=== PATIENT | male | born 1990 | race African-American/Black ===

== ENCOUNTER 2017-11-24 12:42 | Emergency (ER) | payer SELFPAY ==
[~2017-11-24] VITALS: Ht 180.3 cm; Wt 75.0 kg
[~2017-11-24 12:42] MED LIST: ALBU0.63 NEB
[2017-11-24] MEDS ORDERED: SODIUM CHLORIDE 0.9% 1,000ML IVBOLUS ONE (13:30)
[2017-11-24] MEDS ORDERED: MAALOX/HYOSCYAMINE/LIDOCAINE 45 ML BTL PO ONE (13:30)
[2017-11-24] MEDS ORDERED: FAMOTIDINE 20 MG/2 ML IVP ONE (13:30)
[2017-11-24] MEDS ORDERED: SODIUM CHLORIDE FLUSH 10ML SYR IVF ONE (13:30)
[2017-11-24] MEDS ORDERED: PROMETHAZINE 25 MG/ML, 1ML IM ONE (13:30)
[2017-11-24 13:32] LABS: BASOPHILS # (AUTO) 0.03 x10^3/uL (0-0.1); BASOPHILS % (AUTO) 0 % (0-1); EOSINOPHILS # (AUTO) 0.04 x10^3/uL (0-0.4); EOSINOPHILS % (AUTO) 1 % (1-7); LYMPHOCYTES # (AUTO) 1.52 x10^3/uL (1-3.4); LYMPHOCYTES % (AUTO) 22 % (22-44); MD NO; MEAN CORPUSCULAR HEMOGLOBIN 28.8 pg (27.5-34.5); MEAN CORPUSCULAR HGB CONC 33.9 g/dL (33.2-36.2); MEAN CORPUSCULAR VOLUME 84.8 fL (81-97); MEAN PLATELET VOLUME 9.5 fL (7.4-10.4); MONOCYTES # (AUTO) 0.37 x10^3/uL (0.2-0.8); MONOCYTES % (AUTO) 5 % (2-9); NEUTROPHILS # (AUTO) 5.01 x10^3/uL (1.8-6.8); NEUTROPHILS % (AUTO) 72 % (42-75); PLATELET COUNT 180 x10^3/uL (130-400); RED BLOOD COUNT 5.32 x10^6/uL (4.38-5.82); RED CELL DISTRIBUTION WIDTH 13.4 % (9.4-14.8)
[2017-11-24 13:44] LABS: ALBUMIN 4.6 g/dL (3.4-5.0); ANION GAP 11 mmol/L (5-15); CALCIUM 9.6 mg/dL (8.5-10.1); CHLORIDE 108 mmol/L (98-107)
[2017-11-24 13:48] LABS: ALANINE AMINOTRANSFERASE 36 U/L (12-78); ALKALINE PHOSPHATASE 54 U/L (45-117); BILIRUBIN,TOTAL 0.8 mg/dL (0.2-1.0); CREATININE 1.23 mg/dL (0.7-1.3); TOTAL PROTEIN 7.5 g/dL (6.4-8.2)
[2017-11-24] MEDS ORDERED: MAALOX/HYOSCYAMINE/LIDOCAINE 45 ML BTL ONE (13:54)
[2017-11-24] MEDS ORDERED: FAMOTIDINE 20 MG/2 ML ONE (13:54)
[2017-11-24] MEDS ORDERED: ONDANSETRON ODT 4 MG ONE (14:26)
[2017-11-24] MEDS ORDERED: ONDANSETRON ODT 4 MG PO ONE (14:30)
[2017-11-24] MEDS ORDERED: METOCLOPRAMIDE 5 MG/ML, 2ML ONE (15:04)
[2017-11-24 15:07] VITALS: BP 138/74
[2017-11-24] MEDS ORDERED: MORPHINE SULFATE 4 MG/ML, 1ML IVPush ONE (15:30)
[2017-11-24] MEDS ORDERED: METOCLOPRAMIDE 5 MG/ML, 2ML IVPush ONE (15:30)
[2017-11-24] MEDS ORDERED: MORPHINE SULFATE 4 MG/ML, 1ML ONE (15:31)
== END 2017-11-24 16:26 | disposition home or self-care (01) ==
LOC: ED 13:40
DX: K29.20 Alcoholic gastritis without bleeding (principal)
CPT/HCPCS: 36415; 80053; 83690; 85025; 96372; 96374; 96375; 99284; J2550; J2765; J7030; Q0162; S0028

== ENCOUNTER 2018-06-13 05:06 | Emergency (ER) | payer OTHER ==
[~2018-06-13] VITALS: Ht 180.3 cm; Wt 70.3 kg
[2018-06-13 05:07] VITALS: BP 105/55
[2018-06-13 05:47] LABS: MEAN CORPUSCULAR HEMOGLOBIN 29.7 pg (27.5-34.5); MEAN CORPUSCULAR HGB CONC 33.9 g/dL (33.2-36.2); MEAN CORPUSCULAR VOLUME 87.5 fL (81-97); MEAN PLATELET VOLUME 9.6 fL (7.4-10.4); PLATELET COUNT 167 x10^3/uL (130-400); RED BLOOD COUNT 4.76 x10^6/uL (4.38-5.82); RED CELL DISTRIBUTION WIDTH 12.8 % (9.4-14.8)
[2018-06-13 05:57] LABS: CALCIUM 8.8 mg/dL (8.5-10.1); CHLORIDE 108 mmol/L (98-107)
[2018-06-13 06:02] LABS: ALANINE AMINOTRANSFERASE 27 U/L (12-78); ALBUMIN 4.1 g/dL (3.4-5.0); ALKALINE PHOSPHATASE 56 U/L (45-117); ANION GAP 5 mmol/L (5-15); BILIRUBIN,TOTAL 0.4 mg/dL (0.2-1.0); CREATININE 1.12 mg/dL (0.7-1.3); TOTAL PROTEIN 6.8 g/dL (6.4-8.2)
[2018-06-13 06:29] LABS: BASOPHILS # (AUTO) 0.03 x10^3/uL (0-0.1); BASOPHILS % (AUTO) 1 % (0-1); EOSINOPHILS # (AUTO) 0.14 x10^3/uL (0-0.4); EOSINOPHILS % (AUTO) 4 % (1-7); LYMPHOCYTES # (AUTO) 2.38 x10^3/uL (1-3.4); LYMPHOCYTES % (AUTO) 61 % (22-44); MD SCAN; MONOCYTES # (AUTO) 0.26 x10^3/uL (0.2-0.8); MONOCYTES % (AUTO) 7 % (2-9); NEUTROPHILS # (AUTO) 1.08 x10^3/uL (1.8-6.8); NEUTROPHILS % (AUTO) 28 % (42-75)
== END 2018-06-13 08:55 | disposition home or self-care (01) ==
LOC: ED 08:30
DX: K25.3 Acute gastric ulcer without hemorrhage or perforation (principal); K29.00 Acute gastritis without bleeding
CPT/HCPCS: 36415; 74220; 80053; 83690; 85025; 86677; 99284

== ENCOUNTER 2020-04-21 14:36 | Emergency (ER) | payer SELFPAY ==
[~2020-04-21] VITALS: Ht 180.3 cm; Wt 71.8 kg
[2020-04-21 14:38] VITALS: BP 142/61
--- NOTE | 2020-04-21 14:53 | NUR ---
PT IN BR WHILE PA IN ROOM.
[2020-04-21] MEDS ORDERED: AZITHROMYCIN 500 MG TABLET PO ONE (15:00)
[2020-04-21] MEDS ORDERED: CEFTRIAXONE 250 MG IM ONE (15:00)
[2020-04-21] MEDS ORDERED: AZITHROMYCIN 250 MG TABLET ONE (15:03)
[2020-04-21] MEDS ORDERED: CEFTRIAXONE 250 MG ONE (15:04)
[2020-04-21] MEDS ORDERED: LIDOCAINE-MPF 1%, 5ML ONE (15:04)
[2020-04-21] MEDS ORDERED: CEFTRIAXONE 1,000 MG ONE (15:09)
--- NOTE | 2020-04-21 15:55 | NUR ---
Patient given discharge instructions and they have confirmed that they understand the instructions. Patient ambulatory with steady gait.
== END 2020-04-21 16:05 | disposition home or self-care (01) ==
LOC: ED 15:50
DX: N34.2 Other urethritis (principal); F17.200 Nicotine dependence, unspecified, uncomplicated
CPT/HCPCS: 87491; 87591; 96372; 99283; J0696

== ENCOUNTER 2020-05-14 15:35 | Emergency (ER) | payer SELFPAY ==
[~2020-05-14] VITALS: Ht 180.3 cm; Wt 71.8 kg
[2020-05-14 16:01] VITALS: BP 120/64
[2020-05-14] MEDS ORDERED: AZITHROMYCIN 500 MG TABLET PO ONE (16:30)
[2020-05-14] MEDS ORDERED: CEFTRIAXONE 250 MG IM ONE (16:30)
--- NOTE | 2020-05-14 16:46 | NUR ---
CREDIT OFFICER: PT TO ROOM FROM [facility]
[2020-05-14] MEDS ORDERED: AZITHROMYCIN 500 MG TABLET ONE (16:50)
[2020-05-14] MEDS ORDERED: CEFTRIAXONE 250 MG ONE (16:51)
[2020-05-14] MEDS ORDERED: LIDOCAINE-MPF 1%, 2ML ONE (16:51)
[2020-05-14 17:00] LABS: MICROSCOPIC INDICATED
== END 2020-05-14 17:21 | disposition home or self-care (01) ==
LOC: ED 17:20
DX: R30.0 Dysuria (principal); R36.9 Urethral discharge, unspecified; N50.819 Testicular pain, unspecified
CPT/HCPCS: 81001; 87086; 87491; 87591; 96372; 99283; J0696